=== PATIENT | male | born 1945 | race Caucasian/White ===

== ENCOUNTER → 2017-07-13 08:51 | Outpatient (CLI) | payer MEDICARE, SELFPAY ==
--- NOTE | 2017-07-13 08:57 | AAVD_ITS ---
Reason For Study: aortic atherosclerosis Aorta Measurements Aorta Doppler Measurements Proximal aorta measures1.01 x 1.16cm. in cross- Peak systolic flow velocities within the proximal sectional axis. aorta measure 83.9 cm/sec. Proximal aorta measures1.01cm. in longitudinal Peak systolic flow velocities within the mid axis. aorta measure 68.4 cm/sec. Mid aorta measures1.38 x 1.36cm. in cross- Peak systolic flow velocities within the distal sectional axis. aorta measure 63.8 cm/sec. Mid aorta measures1.35cm. in longitudinal axis. Distal aorta measures1.11 x 1.18cm. in cross- sectional axis. Distal aorta measures1.09cm. in longitudinal axis. Left Iliac Artery Left iliac artery measures .759 x .859 cm. in the cross-sectional axis. Left iliac artery measures .729 cm. in the longitudinal axis. Peak systolic velocity in the left iliac artery measures 94.1 cm/sec. Right Iliac Artery Right iliac artery measures .719 x .819 cm. in the cross-sectional axis. Right iliac artery measures .805 cm. in the longitudinal axis. Peak systolic velocity in the right iliac artery measures 125 cm/sec. Procedure Exam was of poor technical qaulity. Exam performed with pt sitting up due to EXTREME SOB and leg swelling. Pt's environmental associate contacted. Pt is to go straight to environmental associate office. Exam performed in department. Interpretation Summary 1. No evidence aortoiliac stenosis or aneurysm. Ordering Physician: Maco Alexandre Performed By: Dick Alfonso RVMedina
--- NOTE | 2017-07-13 08:57 | ADU_ITS ---
Reason For Study: atherosclerosis Right Velocities Left Velocities Common Femoral Artery, mid = 71.5 cm./sec. Common Femoral Artery, mid = 81.7 cm./sec. Supf Femoral Artery, prox = 97.4 cm./sec. Supf. Femoral Artery, prox = 88.8 cm./sec. Supf Femoral Artery, mid = 94.3 cm./sec. Supf. Femoral Artery, mid = 66.0 cm./sec. Supf Femoral Artery, dist. = 87.2 cm./sec. Supf. Femoral Artery, dist = 68.4 cm./sec. Profunda Femoral Artery = 77.0 cm./sec. Profunda Femoral Artery = 105 cm./sec. Popliteal Artery, mid = 80.1 cm./sec. Popliteal Artery, mid = 43.2. cm./sec. Post. Tibial Artery, mid = 34.6 cm./sec. Post Tibial Artery, dist. = 38.5 cm./sec. Post. Tibial Artery, dist = 39.3 cm./sec. Ant. Tibial Artery, distal = 45.6 cm./sec. Ant. Tibial Artery, dist = 54.2 cm./sec. Procedure Limited views of arteries due to severe leg swelling. Pt is also extremely SOB. Pt's parts identification technician contacted. Pt is to go straight to parts identification technician office. Exam performed in department. Interpretation Summary 1. imited exm secondary to patient SOB. 2. Right leg no stejnosis where seen but popliteal triphasic and only shows posterior tibial in calf with monophasic flow 2. Left leg shows no stenosis and triphasic flow where visualized through tibials. Ordering Physician: Maco Alexandre Performed By: Dick Alfonso, RVT
--- NOTE | 2017-07-19 11:06 | LEAS ---
Arterial Study - Arterial Study Arterial Study: Patient: Levi Ramos Date of scan 07/13/[address] Alexandre Indication patient with some claudication type symptoms Interpretation: Right lower extremity with some pulsatile flow at the ankle up through the digits duplex shows triphasic flow noted with the posterior tibial with an TELLY its noncompressible. Dorsalis pedis more biphasic flow also noncompressible. Digital brachial index 0.7. Left lower extremity fairly normal pulsatile flow noted at the ankle up with a good waveform out through the digits duplex shows more of a triphasic flow of the posterior tibial again noncompressible. Dorsalis pedis with biphasic flow but noncompressible as well. Digital brachial index 0.75. Impression: 1. Right lower extremity no evidence of significant arterial occlusive disease at rest with triphasic flow noted. There is noncompressibility throughout consistent with medial calcinosis. Further evaluation as clinically warranted. Normal digit brachial index is 0.7 2. Left lower extremity again with no evidence significant arterial occlusive disease at rest with triphasic flow noted. Bilateral ankle vessels noncompressible consistent with medial calcinosis. Further evaluation as clinically warranted. Relatively normal digit brachial index 0.75
== END ==
PROVIDERS: Family Provider Family Medicine; PCP Family Medicine; Visit Provider Surgery Vascular Surgery
DX: I70.0 Atherosclerosis of aorta (principal); I77.1 Stricture of artery; I70.213 Atherosclerosis of native arteries of extremities with intermittent claudication, bilateral legs
CPT/HCPCS: 93922; 93925; 93978

== ENCOUNTER → 2017-08-16 13:23 | Outpatient (CLI) | payer MEDICARE, SELFPAY ==
--- NOTE | 2017-08-16 13:27 | CT_ITS ---
STUDY: CT CHEST WITHOUT CONTRAST REASON FOR EXAM: Male, 72 years old. Pleural effusion RADIATION DOSAGE (If Supplied By Facility): CTDIvol = ( 20.59 ) mGy, DLP = ( 737.75 ) mGycm TECHNIQUE: Transaxial imaging was performed without the administration of intravenous contrast material. Individualized dose optimization techniques were used for this CT. COMPARISON: None. FINDINGS: There is a large right and moderate left pleural effusion. There is associated compressive atelectasis, worse of the right lower lobe. Normal heart and pericardium. Normal mediastinum. Normal hilar regions. Normal unenhanced pulmonary arteries. There is atherosclerotic calcification of the aortic arch with tortuosity and elongation of the aortic arch and descending thoracic aorta. There are multi-level degenerative changes of the thoracic spine. There is no demonstrated abnormality of the visualized upper abdomen. CT/Chest without Contrast IMPRESSION: There is a large right and moderate left pleural effusion. Electronically Signed: Kym Dan MD at 13:22 EDT , Service support ,
== END ==
PROVIDERS: Family Provider Family Medicine; PCP Family Medicine; Visit Provider Internal Medicine Pulmonary Disease
DX: J90 Pleural effusion, not elsewhere classified (principal)
CPT/HCPCS: 71250